=== PATIENT | male | born 1975 | race Caucasian/White ===

== ENCOUNTER 2022-03-07 20:43 | Emergency (ER) | payer OTHER ==
[2022-03-07 20:49] VITALS: PULSE 71; RESP 20; TEMP 98.6
[2022-03-07] MEDS ORDERED: ASPIRIN 81 MG PO STA (20:54)
--- NOTE | 2022-03-07 21:09 | ED ---
Chest Pain HPI - General Chief Complaint: Chest Pain Stated Complaint: chest pain/sob Time Seen by Provider: 03/07/22 20:51 Source: patient, RN notes reviewed Mode of arrival: ambulatory Limitations: no limitations - History of Present Illness Initial Comments: 46-year-old male presents emergency Department chief complaint of chest pain. Patient states started 2-3 days ago. Patient states that he noticed that he feels short of breath especially with exertion. Patient states that he has centralized chest pain he does admit that he is a smoker does not go to your primary care physician denies knowing if he has a history of hypertension hyperlipidemia diabetes patient denies any prior cardiac disease denies any abdominal pain no recent illnesses. - Related Data Home Medications Medication Instructions Recorded Confirmed No Known Home Medications 03/07/22 03/07/22 Allergies Allergy/AdvReac Type Severity Reaction Status Date / Time No Known Allergies Allergy Verified 03/07/22 22:03 Review of Systems ROS Statement: Those systems with pertinent positive or pertinent negative responses have been documented in the HPI. ROS Other: All systems not noted in ROS Statement are negative. EKG Findings - EKG Comments: EKG Findings:: EKG performed at 21:14 sinus rhythm rate of 68 NJ 171 QRS 105 QT/QTC 374/391 - EKG Results: EKG: interpreted by THELMA Past Medical History Past Medical History: No Reported History History of Any Multi-Drug Resistant Organisms: None Reported Past Surgical History: Orthopedic Surgery Additional Past Surgical History / Comment(s): colostomy Past Psychological History: No Psychological Hx Reported Smoking Status: Never smoker Past Alcohol Use History: None Reported, Rare Past Drug Use History: None Reported General Exam Limitations: no limitations General appearance: alert, in no apparent distress Head exam: Present: atraumatic, normocephalic, normal inspection Eye exam: Present: normal appearance, PERRL, EOMI. Absent: scleral icterus, conjunctival injection, periorbital swelling ENT exam: Present: normal exam, normal oropharynx, mucous membranes moist Neck exam: Present: normal inspection, full ROM. Absent: tenderness, meningismus, lymphadenopathy Respiratory exam: Present: normal lung sounds bilaterally. Absent: respiratory distress, wheezes, rales, rhonchi, stridor Cardiovascular Exam: Present: regular rate, normal rhythm, normal heart sounds. Absent: systolic murmur, diastolic murmur, rubs, gallop, clicks GI/Abdominal exam: Present: soft, normal bowel sounds. Absent: distended, tenderness, guarding, rebound, rigid Back exam: Absent: CVA tenderness (R), CVA tenderness (L) Neurological exam: Present: alert, oriented X3 Course Vital Signs 03/07/22 20:45 Temperature 98.6 F Pulse Rate 71 Respiratory 20 Rate Blood Pressure 146/83 O2 Sat by Pulse 96 Oximetry Chest Pain MDM - MDM Was pt. sent in by a medical professional or institution (AMIRAH Butterfield, INTERIOR DESIGN COORDINATOR, urgent care, hospital, or snf...) When possible be specific @ -[No] Did you speak to anyone other than the patient for history (EMS, parent, family, police, friend...)? What history was obtained from this source @ -[No] Did you review nursing and triage notes (agree or disagree)? Why? @ -[I reviewed and agree with nursing and triage notes] Were old charts reviewed (outside hosp., previous admission, EMS record, old EKG, old radiological studies, urgent care reports/EKG's, snf records)? Report findings @ -[No old charts were reviewed] Differential Diagnosis (chest pain, altered mental status, abdominal pain women, abdominal pain men, vaginal bleeding, weakness, fever, dyspnea, syncope, headache, dizziness, GI bleed, back pain, seizure, CVA, palpatations, mental health)? @ -[Chest pain, chest wall pain, pneumothorax, pneumonia, PE, atypical chest pain, ACS, this is is not all inconclusive.] EKG interpreted by me (3pts min.). @ -[As above] X-rays interpreted by me (1pt min.). @ -[Chest x-rays unremarkable] CT interpreted by me (1pt min.). @ -[None done] U/S interpreted by me (1pt. min.). @ -[None done] What testing was considered but not performed or refused? (CT, X-rays, U/S, labs )? Why? @ -[None] What meds were considered but not given or refused? Why? @ -[None] Did you discuss the management of the patient with other professionals (professionals i.e. AMIRAH Butterfield, INTERIOR DESIGN COORDINATOR, lab, RT, psych nurse, secondary social studies teacher, art specialist, teacher, hospital admissions officer, case resource manager)? Give summary @ -[Dr. [place] admitting hospitalist with consult to cardiology] Was smoking cessation discussed for >3mins.? @ -[No] Was critical care preformed (if so, how long)? @ -[No] Were there social determinants of health that impacted care today? How? (Homelessness, low income, unemployed, alcoholism, drug addiction, transporta tion, low edu. Level, literacy, decrease access to med. care, prison, rehab)? @ -[No] Was there de-escalation of care discussed even if they declined (Discuss DNR or withdrawal of care, Hospice)? DNR status @ -[No] What co-morbidities impacted this encounter? (DM, HTN, Smoking, COPD, CAD, Cancer, CVA, ARF, Chemo, Hep., AIDS, mental health diagnosis, sleep apnea, morbid obesity)? @ -[Smoking] Was patient admitted / discharged? Hospital course, mention meds given and route, prescriptions, significant lab abnormalities, going to OR and other pertinent info. @ -[Admitted patient's initial workup including troponin, d-dimer is negative, patient does have EKG changes no prior EKG to compare to. Patiently admitted for a rule out with cardiology evaluation, echocardiogram.] Undiagnosed new problem with uncertain prognosis? @ -[No] Drug Therapy requiring intensive monitoring for toxicity (Heparin, Nitro, Insulin, Cardizem)? @ -[No] Were any procedures done? @ -[No] Diagnosis/symptom? @ -[Chest pain] Acute, or Chronic, or Acute on Chronic? @ -[Acute] Uncomplicated (without systemic symptoms) or Complicated (systemic symptoms)? @ -[Uncomplicated] Side effects of treatment? @ -[No] Exacerbation, Progression, or Severe Exacerbation? @ -[No] Poses a threat to life or bodily function? How? (Chest pain, [place], [place], pneumonia, PE, COPD, DKA, ARF, appy, cholecystitis, CVA, Diverticulitis, Homicidal, Suicidal, threat to staff... and all critical care pts) @ -[Yes chest pain, may lead to cardiac arrest.] Disposition Clinical Impression: Chest pain Disposition: ADMITTED IP TO THIS [facility] Condition: Fair Referrals: None,Stated [Primary Care Provider] - 1-2 days Time of Disposition: 22:22
[2022-03-07 21:41] LABS: Basophils # (A) 0.1 k/uL (0-0.2); Basophils % (A) 1 %; Eosinophils # (A) 0.3 k/uL (0-0.7); Eosinophils % (A) 6 %; HCT 41.6 % (39.0-53.0); HGB 14.9 gm/dL (13.0-17.5); Hyperchromasia Slight; Lymphocytes # (A) 2.1 k/uL (1.0-4.8); Lymphocytes % (A) 33 %; MCHC 35.9 g/dL (31.0-37.0); MCV 89.2 fL (80.0-100.0); Mean Platelet Volume 9.7; Monocytes # (A) 0.3 k/uL (0-1.0); Monocytes % (A) 5 %; Neutrophils # (A) 3.3 k/uL (1.3-7.7); Neutrophils % (A) 53 %; Platelet Count 135 k/uL (150-450); RBC 4.66 m/uL (4.30-5.90); RDW 13.1 % (11.5-15.5); WBC 6.2 k/uL (3.8-10.6)
[2022-03-07 21:54] LABS: ALT 92 U/L (4-49); AST 56 U/L (17-59); African American GFR (CKD) >90 (>60 ml/min/1.73 sqM); Albumin 4.5 g/dL (3.5-5.0); Alkaline Phosphatase 58 U/L (38-126); Anion Gap 8 mmol/L; Blood Urea Nitrogen 15 mg/dL (9-20); Calcium 8.7 mg/dL (8.4-10.2); Carbon Dioxide 24 mmol/L (22-30); Chloride 108 mmol/L (98-107); Glucose 96 mg/dL (74-99); Non-African American GFR(CKD) 84 (>60 ml/min/1.73 sqM); Sodium 140 mmol/L (137-145); Total Bilirubin 0.8 mg/dL (0.2-1.3); Total Protein 7.3 g/dL (6.3-8.2)
--- NOTE | 2022-03-07 21:54 | XR ---
EXAMINATION TYPE: XR chest 2V DATE OF EXAM: 03/07/2022 9:37 PM COMPARISON: None TECHNIQUE: XR chest 2V Frontal and lateral views of the chest. CLINICAL INDICATION:Male, 46 years old with history of Chest Pain; FINDINGS: Lungs/Pleura: There is no evidence of pleural effusion, focal consolidation, or pneumothorax. Pulmonary vascularity: Unremarkable. Heart/mediastinum: Cardiomediastinal silhouette is unremarkable. Musculoskeletal: No acute osseous pathology. IMPRESSION: No acute cardiopulmonary disease/process.
[2022-03-07 22:05] LABS: Potassium 4.3 mmol/L (3.5-5.1)
[2022-03-07 22:13] LABS: Partial Thromboplastin Time 21.7 sec (22.0-30.0); Prothrombin Time 10.3 sec (9.0-12.0)
[2022-03-07] MEDS ORDERED: NITROGLYCERIN SL TABS 0.4 MG TAB SUBLINGUAL PRN (22:41)
[2022-03-07 22:58] VITALS: BP 146/103
[2022-03-08] MEDS ORDERED: ASPIRIN 325 MG TAB PO SCH (09:00)
== END 2022-03-07 23:10 | disposition other institution (70) ==
LOC: EC 20:43 → UNDOADMOB 22:32 → 6NMEDSUR 22:32
DX: R07.89 Other chest pain (principal); Z53.29 Procedure and treatment not carried out because of patient's decision for other reasons
CPT/HCPCS: 36415; 71046; 80053; 83735; 83880; 84484; 85025; 85379; 85610; 85730; 93005; 99285

== ENCOUNTER 2022-06-24 12:05 | Emergency (ER) | payer OTHER ==
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
--- NOTE | 2022-06-24 14:25 | XR ---
EXAMINATION TYPE: XR foot complete RT DATE OF EXAM: 06/24/2022 COMPARISON: None HISTORY: Injury, crush injury, pain TECHNIQUE: 3 view right foot FINDINGS: There is complete dislocation of the proximal phalanx of the fourth digit on the fourth and fifth metatarsals. No acute fractures are identified. Osseous alignment is otherwise preserved. IMPRESSION: 1. Dislocation of the proximal phalanx on the distal metatarsal of the fourth and fifth digits right foot
--- NOTE | 2022-06-24 14:27 | XR ---
EXAMINATION TYPE: XR ankle complete RT DATE OF EXAM: 06/24/2022 COMPARISON: None HISTORY: Crush injury, pain TECHNIQUE: 3 view right ankle FINDINGS: Ankle mortise is intact. No acute fracture or dislocation is evident. Soft tissues appear n ormal. Follow up exams can be performed 7-10 days from acute trauma for continued pain. IMPRESSION: 1. No acute osseous abnormality right ankle
[2022-06-24] MEDS ORDERED: HYDROmorphone 1 MG/ML 1 ML SYRINGE IM STA (14:38)
[2022-06-24] MEDS ORDERED: KETOROLAC 15 MG/ML 1 ML VIAL IM STA (14:38)
[2022-06-24 14:49] VITALS: RESP 16
--- NOTE | 2022-06-24 16:17 | XR ---
EXAMINATION TYPE: XR foot complete RT DATE OF EXAM: 06/24/2022 COMPARISON: 06/24/2022 HISTORY: Dislocation fourth and fifth digits TECHNIQUE: 3 view right foot FINDINGS: Fourth and fifth digit dislocations have been reduced. No fractures are identified. Soft ti ssues appear normal. IMPRESSION: 1. Reduction of previous dislocations of the fourth and fifth digits.
[2022-06-24 16:38] VITALS: BP 119/70; PULSE 81; TEMP 98.3
== END 2022-06-24 15:40 | disposition home or self-care (01) ==
LOC: EC 12:05
DX: S93.104A Unspecified dislocation of right toe(s), initial encounter (principal); W23.0XXA Caught, crushed, jammed, or pinched between moving objects, initial encounter
CPT/HCPCS: 73610; 73630; 99283; 96372 ×2; 26770; J1170; J1885

== ENCOUNTER → 2023-03-21 | Outpatient (CLI) | payer OTHER ==
--- NOTE | 2023-03-21 08:36 | US ---
EXAMINATION TYPE: US abdomen limited DATE OF EXAM: 03/21/2023 COMPARISON: NONE CLINICAL INDICATION: Male, 47 years old with history of R19.00 INTRA-ABD AND PELVIC SWELLING, MASS AN D LUM; lump on rt side for 10 years. TECHNIQUE: FINDINGS: Hyperechoic area seen 1.8 x 1.1 x 1.5 cm area of lump suggestive of Lipoma. IMPRESSION: Lipoma
== END | disposition home or self-care (01) ==
LOC: RADUSWWP 07:53
PROVIDERS: ATTEND Family Medicine
DX: D17.5 Benign lipomatous neoplasm of intra-abdominal organs (principal)
CPT/HCPCS: 76705

== ENCOUNTER → 2024-01-20 | Outpatient (CLI) | payer OTHER ==
--- NOTE | 2024-01-20 08:43 | CT ---
EXAMINATION TYPE: CT abdomen pelvis w con DATE OF EXAM: 01/20/2024 8:37 AM COMPARISON: Abdominal ultrasound 03/21/2023 CLINICAL INDICATION: Male, 48 years old with history of R10.9 UNSPECIFIED ABDOMINAL PAIN; Abdomen nadine n and Hx of ileostomy TECHNIQUE: Axial CT abdomen pelvis w con;Sagittal and coronal reformats were created on a separate w orkstation. Contrast used:100 mL of Isovue 300 with IV Contrast, (none if empty) Oral contrast used: with Oral Contrast (none if empty) CT DLP: 1745 mGycm, Automated exposure control for dose reduction was used. FINDINGS: LOWER CHEST: Unremarkable ABDOMEN LIVER: Unremarkable GALLBLADDER AND BILE DUCTS: Unremarkable. PANCREAS: Unremarkable. SPLEEN: Unremarkable. ADRENAL GLANDS: Unremarkable. KIDNEYS AND URETERS: No evidence of hydronephrosis or renal calculus. The ureters are unremarkable. PELVIS BLADDER: No evidence for wall thickening or mass given limitations of exam. REPRODUCTIVE: Unremarkable. ABDOMEN & PELVIS STOMACH AND BOWEL: No evidence of bowel obstruction. Postsurgical changes to the bowel/colon. No evid ence for wall thickening. PERITONEUM/RETROPERITONEUM: No evidence of pneumoperitoneum or free fluid. VASCULATURE: No evidence of aortic aneurysm. MUSCULOSKELETAL: No acute osseous abnormalities LYMPH NODES: No gross evidence for lymphadenopathy. SOFT TISSUE/ABDOMINAL WALL: Unremarkable IMPRESSION: Postsurgical change the small bowel/colon without evidence for obstruction or wall thickening. No amandeep dence for acute abdominal process. [facility], , 01/20/2024 8:41 AM
== END | disposition home or self-care (01) ==
LOC: RADCTMAIN 06:37
PROVIDERS: ATTEND Family Medicine
DX: R10.9 Unspecified abdominal pain (principal); Z98.890 Other specified postprocedural states
CPT/HCPCS: 74177; 36415; Q9967